=== PATIENT | male | born 1970 | race Caucasian/White ===

== ENCOUNTER 2025-04-10 19:00 | Emergency (ER) | payer BC ==
[~2025-04-10] VITALS: Ht 190.5 cm; Wt 136.4 kg
[2025-04-10 19:04] VITALS: TEMP 98
[2025-04-10] MEDS ORDERED: LASI40TA9 PO (19:15)
[2025-04-10] MEDS ORDERED: DOXA1TAB67 PO (19:15)
[2025-04-10] MEDS ORDERED: POTA-141 FT (19:15)
[2025-04-10] MEDS ORDERED: AMLO1TAB25 PO (19:15)
[2025-04-10] MEDS ORDERED: LISI40TA10 PO (19:15)
[2025-04-10] MEDS ORDERED: VENTAER INH (19:15)
[2025-04-10] MEDS ORDERED: MONT10TA97 PO (19:15)
[2025-04-10 20:26] LABS: BASO # 0.0 10^3/uL (0.0-0.2); BASO % 0.3 % (0.0-1.0); EOS # 0.2 10^3/uL (0.0-0.5); EOS % 1.8 % (0.0-3.0); LYMPH # 1.7 10^3/uL (1.5-5.0); LYMPH % 18.5 % (24.0-44.0); MONO # 1.2 10^3/uL (0.0-0.8); MONO % 13.4 % (2.0-8.0); NEUTROPHILS # 6.0 10^3/uL (1.5-8.5); NEUTROPHILS % 65.7 % (36.0-66.0); PLATELET COUNT, AUTOMATED 287 10^3/uL (150-450)
[2025-04-10 20:45] LABS: CK-MB VALUE MASS < 1.0 NG/ML (<3.6)
[2025-04-10 20:47] LABS: ALT/SGPT 23 U/L (7.0-40); AST/SGOT 16 U/L (<34); CALCIUM LEVEL 8.4 MG/DL (8.5-10.1); CARBON DIOXIDE LEVEL 28 MMOL/L (20-31); CHLORIDE LEVEL 104 MMOL/L (98-107); CPK CREATINE PHOSPHOKINASE 48 U/L (46-171); CREATININE FOR GFR 0.96 MG/DL (0.70-1.30); GLOMERULAR FILTRATION RATE > 90.0 (>56); POTASSIUM SERUM 3.9 MMOL/L (3.5-5.1); SODIUM LEVEL 140 MMOL/L (136-145)
[2025-04-10 21:44] LABS: THYROXINE (T4) 5.5 UG/DL (4.5-10.9)
[2025-04-11] MEDS ORDERED: ISOVUE-370 76% 100 ML VIAL As Ordered ONE (00:10)
[2025-04-11 01:31] VITALS: BP 146/81
[2025-04-11 02:30] VITALS: O2SAT 96
[2025-04-11 02:39] VITALS: BP 146/81
[2025-04-11] MEDS: FUROSEMIDE 40 MG TAB PO ONE (02:39)
== END 2025-04-11 02:54 | disposition home or self-care (01) ==
LOC: M ED 19:00
DX: R14.0 Abdominal distension (gaseous) (principal); R60.0 Localized edema; R77.0 Abnormality of albumin; I49.1 Atrial premature depolarization; I10 Essential (primary) hypertension; N40.0 Benign prostatic hyperplasia without lower urinary tract symptoms; F17.200 Nicotine dependence, unspecified, uncomplicated; Z90.49 Acquired absence of other specified parts of digestive tract; Z79.52 Long term (current) use of systemic steroids; Z79.899 Other long term (current) drug therapy
CPT/HCPCS: 36415; 71046; 71260; 74177; 80048; 80076; 82550; 82553; 83880; 84436; 84443; 84484; 85025; 87486; 87581; 87633; 87798; 93005; 99284; Q9967